=== PATIENT | female | born 1975 | race Caucasian/White ===

== ENCOUNTER 2022-08-21 19:14 | Emergency (ER) | payer MEDICAID ==
[2022-08-21] MEDS ORDERED: LORazepam 1 MG Tab PO ONE (19:48)
[2022-08-21] MEDS ORDERED: Orphenadrine 100 MG Tab.ER PO STA (19:49)
[2022-08-21 20:23] LABS: BASOPHILS ABSOLUTE AUTO 0.06 K/mm3 (0.01-0.08); EOSINOPHILS ABSOLUTE AUTO 0.25 K/mm3 (0.04-0.36); HEMATOCRIT 36.3 % (34.1-44.9); HEMOGLOBIN 11.5 gm/dl (11.2-15.7); IMMATURE GRAN ABSOLUTE AUTO 0.01 K/mm3 (0.00-0.10); IMMATURE GRAN PERCENT AUTO 0.2 % (<=1.0); LYMPHOCYTES ABSOLUTE AUTO 2.21 K/mm3 (1.18-3.74); LYMPHOCYTES PERCENT AUTO 35.1 % (19.3-51.7); MEAN CORPUSCULAR HEMOGLOBIN 26.1 pg (25.6-32.2); MEAN CORPUSCULAR HGB CONC 31.7 g/dl (32.2-35.5); MEAN CORPUSCULAR VOLUME 82.5 fl (79.4-94.8); MEAN PLATELET VOLUME 11.4 fl (9.4-12.3); MONOCYTES ABSOLUTE AUTO 0.52 K/mm3 (0.24-0.36); MONOCYTES PERCENT AUTO 8.3 % (4.7-12.5); NEUTROPHILS ABSOLUTE AUTO 3.25 K/mm3 (1.56-6.13); NEUTROPHILS PERCENT AUTO 51.4 % (34.0-71.1); PLATELET COUNT,PLT 355 K/mm3 (182-369)
[2022-08-21 21:01] LABS: ALBUMIN 3.6 g/dl (3.4-5.0); ANION GAP 12.6 (5-15); BILIRUBIN TOTAL 0.3 mg/dL (0.2-1.0); CALCIUM 8.9 mg/dL (8.5-10.1); EST CRCL DRUG DOSING (CG) 76.02 mL/min; POTASSIUM,K 3.6 mEq/L (3.5-5.1); PROTEIN TOTAL,TP 7.1 g/dl (6.4-8.2)
== END 2022-08-21 22:38 | disposition home or self-care (01) ==
LOC: JD.ED 19:14
DX: R07.89 Other chest pain (principal); E66.9 Obesity, unspecified; Z68.31 Body mass index [BMI] 31.0-31.9, adult; Z87.891 Personal history of nicotine dependence; Z98.890 Other specified postprocedural states
CPT/HCPCS: 36415; 71046; 80053; 83880; 84484; 85025; 85379; 93005; 99285; A9270; 93010; 99284